=== PATIENT | male | born 1995 | race Caucasian/White ===

== ENCOUNTER 2017-08-12 16:30 | Emergency (ER) | payer SELFPAY ==
[~2017-08-12] VITALS: Ht 175.3 cm; Wt 74.1 kg
[~2017-08-12 16:30] MED LIST: IBUPROFEN 600MG PO; ONDA4TAB6 PO
[2017-08-12 16:38] VITALS: BP 115/43
[2017-08-12] MEDS ORDERED: PENI500T2 PO (16:51)
[2017-08-12] MEDS ORDERED: IBUP-1985 PO (16:51)
== END 2017-08-12 17:00 | disposition home or self-care (01) ==
LOC: ER 16:31
DX: S02.5XXA Fracture of tooth (traumatic), initial encounter for closed fracture (principal); F12.10 Cannabis abuse, uncomplicated; Z86.14 Personal history of Methicillin resistant Staphylococcus aureus infection; X58.XXXA Exposure to other specified factors, initial encounter; Y93.89 Activity, other specified; Y92.89 Other specified places as the place of occurrence of the external cause; Y99.8 Other external cause status
CPT/HCPCS: 99283